=== PATIENT | male | born 1985 | race Caucasian/White ===

== ENCOUNTER → 2016-04-27 | Outpatient (CLI) | payer BC ==
--- NOTE | 2016-04-27 16:44 | Diagnostic Imaging Report ---
INDICATION: Cough and lightheadedness and shortness of breath. PA and lateral chest obtained at 4:50 p.m. FINDINGS: Heart and mediastinal silhouette are normal in appearance. The lungs are clear. There is no pneumothorax or pleural fluid. IMPRESSION: Negative chest. Dictated by: Dictated on workstation # [id number]
== END ==
LOC: RAD 16:23
PROVIDERS: ATTEND Family Medicine
DX: R05 Cough (principal)
CPT/HCPCS: 71020